=== PATIENT | female | born 1985 | race Caucasian/White ===

== ENCOUNTER → 2020-10-26 | Outpatient (REF) | LOC: COL.CARD 14:05 | DX: Z01.810 Encounter for preprocedural cardiovascular examination (principal) ==

== ENCOUNTER 2021-12-13 09:17 | Day surgery (SDC) | payer BC ==
[~2021-12-13] VITALS: Ht 175.3 cm; Wt 96.9 kg
[2021-12-13] MEDS ORDERED: DESYREL DIVIDO150 M1 PO (10:00)
[2021-12-13] MEDS ORDERED: AMBIEN 5MG TABLE5 MG PO (10:00)
[2021-12-13] MEDS ORDERED: MAG-OX 400400 MG/TAB PO (10:01)
[2021-12-13] MEDS ORDERED: ZEBETA 5MG5 MG PO (10:01)
[2021-12-13] MEDS ORDERED: NIRAVAM1 MG PO (10:02)
[2021-12-13 10:04] VITALS: BP 110/74; PULSE 80; TEMP 97.8
[2021-12-13] MEDS ORDERED: BENTYL 10MG10 MG/CAP PO (11:19)
[2021-12-13] MEDS ORDERED: PEPCID 20MG TAB20 MG PO (11:19)
[2021-12-13 11:28] VITALS: BP 124/74; PULSE 73; TEMP 97
--- NOTE | 2021-12-13 11:28 | NUR ---
pt returned to [facility] via cart from endo room, friend/chain saw driver in room. pt walked to chair, call light in reach, sips on water only
[2021-12-13 11:45] VITALS: BP 118/82; PULSE 75
--- NOTE | 2021-12-13 11:45 | NUR ---
into visit with pt on procedure and new RX sent to pharmacy
[2021-12-13 12:00] VITALS: BP 121/76; PULSE 60
--- NOTE | 2021-12-13 12:10 | NUR ---
iv d'cd intact, reviewed discharge inst. with pt on new meds/followup, activity and precautions with EGD/Colonoscopy, verbal understanding. Pt discharged via w/c to car at 1220
== END 2021-12-13 12:20 | disposition home or self-care (01) ==
LOC: SDCO 09:17
DX: K29.30 Chronic superficial gastritis without bleeding (principal); K44.9 Diaphragmatic hernia without obstruction or gangrene; K64.0 First degree hemorrhoids; E66.9 Obesity, unspecified; Z86.16 Personal history of COVID-19
CPT/HCPCS: J2704; J7120

== ENCOUNTER 2024-01-08 11:08 | Day surgery (SDC) | payer BC ==
[~2024-01-08] VITALS: Ht 177.8 cm; Wt 98.2 kg
[~2024-01-08 11:08] MED LIST changes: +LR 1,000 ML IV SCH; -NORCO 325 MG-51 TAB PO; -PROAIR HFA0.09 MG/AC IH; -ZOLOFT 50MG50 MG PO
[2024-01-08] MEDS ORDERED: ZOLOFT 50MG50 MG PO (12:03)
[2024-01-08] MEDS ORDERED: PROAIR HFA0.09 MG/AC IH (12:05)
[2024-01-08 12:42] VITALS: BP 116/74; PULSE 79; TEMP 98.2
[2024-01-08] MEDS ORDERED: NS 10 ML IV ONE (12:48)
[2024-01-08] MEDS ORDERED: fentaNYL 50 MCG/ML 2 ML VIAL ONE (12:48)
[2024-01-08] MEDS ORDERED: Lidocaine PF 2% (20 MG/ML) 5 ML VIAL ONE (12:48)
[2024-01-08] MEDS ORDERED: Ibuprofen 600 MG TAB PO PRN (13:30)
[2024-01-08] MEDS ORDERED: Acetaminophen 325 MG TAB PO PRN (13:30)
[2024-01-08] MEDS ORDERED: Ondansetron 4 MG/2 ML VIAL IV PRN (13:30)
[2024-01-08] MEDS ORDERED: NORCO 325 MG-51 TAB PO (13:31)
[2024-01-08] MEDS ORDERED: Heparin 5,000 UNITS/ML 1 ML VIAL IV ONE (13:50)
[2024-01-08 14:24] VITALS: BP 114/63; PULSE 85; TEMP 97.5
[2024-01-08 14:40] VITALS: BP 119/78; PULSE 78
[2024-01-08 14:55] VITALS: BP 127/79; PULSE 64
== END 2024-01-08 15:09 | disposition home or self-care (01) ==
LOC: SDCO 11:08
DX: C50.912 Malignant neoplasm of unspecified site of left female breast (principal); M79.7 Fibromyalgia
CPT/HCPCS: C1788; J0690; J1644; J2704; J3010; J7120

== ENCOUNTER → 2024-01-08 | Outpatient (CLI) | payer BC ==
[~2024-01-08] MED LIST: AMBIEN 5MG TABLE5 MG PO; BENTYL 10MG10 MG/CAP PO; DESYREL DIVIDO150 M1 PO; MAG-OX 400400 MG/TAB PO; NIRAVAM1 MG PO; NORCO 325 MG-51 TAB PO; PEPCID 20MG TAB20 MG PO; PROAIR HFA0.09 MG/AC IH; ZEBETA 5MG5 MG PO; ZOLOFT 50MG50 MG PO
== END ==
LOC: MC.RAD 08:00
DX: C50.412 Malignant neoplasm of upper-outer quadrant of left female breast (principal)

== ENCOUNTER → 2024-04-01 | Outpatient (CLI) | payer BC ==
[~2024-04-01] MED LIST changes: -LR 1,000 ML IV SCH; +NORCO 325 MG-51 TAB PO; +PROAIR HFA0.09 MG/AC IH; +ZOLOFT 50MG50 MG PO
== END ==
LOC: COL.VAS 13:09
DX: I34.0 Nonrheumatic mitral (valve) insufficiency (principal); J90 Pleural effusion, not elsewhere classified; C50.412 Malignant neoplasm of upper-outer quadrant of left female breast

== ENCOUNTER → 2024-06-03 | Outpatient (CLI) | payer BC ==
[~2024-06-03] MED LIST changes: +NEURONTIN100 MG/CAP PO; -NIRAVAM1 MG PO; +XANAX 1MG1 MG PO; +ZOFRAN8 MG PO
== END ==
LOC: MC.RAD 12:27
DX: C50.412 Malignant neoplasm of upper-outer quadrant of left female breast (principal)
CPT/HCPCS: 27777; A4648